=== PATIENT | female | born 1950 | race African-American/Black ===

== ENCOUNTER 2018-04-29 07:39 | Emergency (ER) | payer OTHER ==
[~2018-04-29] VITALS: Ht 167.6 cm; Wt 65.0 kg
[2018-04-29 07:59] VITALS: BP 151/75
[2018-04-29] MEDS ORDERED: SODIUM CHLORIDE 0.9% 1,000 ML IV ONE (09:29)
== END 2018-04-29 09:47 | disposition left against medical advice (07) ==
LOC: ER 07:39
DX: R53.1 Weakness (principal); I10 Essential (primary) hypertension
CPT/HCPCS: 99283; J7030